=== PATIENT | male | born 1945 | race Caucasian/White ===

== ENCOUNTER 2016-10-28 11:20 | Day surgery (SDC) | payer OTHER ==
[2016-10-14 11:28] VITALS: BMI 28.0
--- NOTE | 2016-10-14 12:14 | PAT Medication Instructions ---
Service Date Oct 14, 2016. Current Home Medication List Aspirin (Aspirin Chewable), 81 MG PO QAM Citalopram Hydrobromide (Citalopram Hydrobromide), 1 TAB PO QAM Ergocalciferol (Vitamin D 27287 Unit), 1 CAP PO WK Fenofibrate (Tricor), 160 MG PO QAM Furosemide (Lasix), 1 TAB PO BID Levothyroxine Sodium (Levothyroxine Sodium), 1 TAB PO QAM Multiple Vitamins W/ Minerals (Multi Vitamin/Minerals Fu), 1 TAB PO QAM Ondasetron Odt (Zofran Odt), 4 MG SL Q6H PRN for Nausea or Vomiting Pantoprazole (Protonix), 40 MG PO QAM Polyethylene Glycol 3350 (Bulk (Polyethylene Glycol 3350), 17 GM PO QAM Simvastatin (Zocor), 1 TAB PO QAM Tamsulosin Hcl (Flomax), 0.4 MG PO QAM [fluticasone nasal], 2 SPRAYS NA qa Medication Instructions For Your Scheduled Surgery - Hold the following medications the morning of surgery: Tamsulosin Hcl (Flomax), 0.4 MG PO QAM Polyethylene Glycol 3350 (Bulk (Polyethylene Glycol 3350), 17 GM PO QAM Multiple Vitamins W/ Minerals (Multi Vitamin/Minerals Fu), 1 TAB PO QAM Furosemide (Lasix), 1 TAB PO BID Fenofibrate (Tricor), 160 MG PO QAM Ergocalciferol (Vitamin D 56604 Unit), 1 CAP PO WK - Take the following medications the morning of surgery with a sip of water: [fluticasone nasal], 2 SPRAYS NA qa Simvastatin (Zocor), 1 TAB PO QAM Ondasetron Odt (Zofran Odt), 4 MG SL Q6H PRN for Nausea or Vomiting (if needed) Pantoprazole (Protonix), 40 MG PO QAM Levothyroxine Sodium (Levothyroxine Sodium), 1 TAB PO QAM Citalopram Hydrobromide (Citalopram Hydrobromide), 1 TAB PO QAM Aspirin (Aspirin Chewable), 81 MG PO QAM (okay to continue per surgeon) - Take the following medications as scheduled the night before surgery: Ondasetron Odt (Zofran Odt), 4 MG SL Q6H PRN for Nausea or Vomiting (if needed) If you have any questions please call us at [phone] or [phone] or [phone]
--- NOTE | 2016-10-14 12:52 | DIAGNOSTIC IMAGING REPORT ---
CHEST 2 VIEWS ROUTINE CLINICAL HISTORY: Preoperative chest COMPARISON STUDY: No previous studies for comparison. FINDINGS: There is a right internal jugular dual-lumen central venous catheter present. The heart is the upper limits of normal in size. There is no failure. There is a small to moderate left pleural effusion with associated left basilar atelectasis.[ IMPRESSION: Left pleural effusion. Electronically signed by: Nav López M.D. 10/14/2016 12:51 PM Dictated Date/Time: 10/14/2016 12:50 PM
[2016-10-14 12:59] LABS: BASO % 0.4 %; BASO ABS # 0.02 K/uL (0-0.2); COMPLETE YES; EOS % 2.9 %; HEMATOCRIT 36.1 % (42-52); IG% 0.2 %; LYMPH % 14.8 %; LYMPH ABS # 0.83 K/uL (1.2-3.4); MEAN CELL VOLUME 100.6 fL (80-100); MEAN CORPUSCULAR HEMOGLOBIN 32.9 pg (25-34); MEAN CORPUSCULAR HGB CONC 32.7 g/dl (32-36); MEAN PLATELET VOLUME 10.5 fL (7.4-10.4); MONO % 8.6 %; NEUT % 73.1 %; PLATELET COUNT 245 K/uL (130-400); RED BLOOD COUNT 3.59 M/uL (4.7-6.1); WHITE BLOOD COUNT 5.61 K/uL (4.8-10.8)
[2016-10-14 13:11] LABS: INR 1.1 (0.9-1.1); PARTIAL THROMBOPLASTIN RATIO 1.2
[2016-10-14 13:41] LABS: BUN/CREATININE RATIO 11.2 (10-20); CALCIUM 8.6 mg/dl (8.5-10.1); CREATININE 4.6 mg/dl (0.60-1.40); POTASSIUM 3.7 mmol/L (3.5-5.1)
[~2016-10-28] VITALS: Ht 175.3 cm; Wt 86.9 kg
--- NOTE | 2016-10-28 06:08 | History and Physical ---
History & Physical Date of Service Oct 28, 2016. History & Physical CC: End stage renal disease HPI: Mr. Lara states that he started dialysis through an IJ PermCath back in 05/2016. He states that he has not yet undergone AV fistula creation. He denies any other complaints at this time including headaches, fevers, chills, dizziness, chest pain, shortness of breath, abdominal pain, nausea, vomiting, diarrhea, constipation, dysuria, hematuria, rest pain, claudication, nonhealing wounds, ulcers, or other complaints. ALLERGIES: NO KNOWN ALLERGIES. HOME MEDICATIONS: Reconciled in the chart and include aspirin, citalopram, ergocalciferol, fenofibrate, fluticasone, furosemide, levothyroxine, MiraLAX, ondansetron, Protonix, Renal Caps, simvastatin, and tamsulosin. PAST MEDICAL HISTORY: Positive for chronic anemia, en-stage renal disease, on hemodialysis, hyperlipidemia, hypothyroidism, gastroesophageal reflux disease. PAST SURGICAL HISTORY: Essentially negative. SOCIAL HISTORY: Negative for tobacco, alcohol, or drug use. FAMILY HISTORY: Positive for hypertension. REVIEW OF SYSTEMS: Negative for fatigue, fevers, sweats, weight loss, exercise intolerance, abnormal moles or rashes, vision changes, photophobia, ear pain, sinus problems or sore throat, cough, shortness of breath, hemoptysis or wheezing, chest pain, palpitations or syncope, abdominal pain, muscle weakness, headaches, dizziness, numbness, or seizures. PHYSICAL EXAMINATION: Vital Signs: Today were as follows, blood pressure 108/ 64 in the right arm, 114/66 in the left, heart rate 74, respiratory rate of 18, oxygen saturation of 98% on room air. Constitutional: In general, the patient is a mildly chronically ill-appearing, elderly male, in no acute distress. He ambulates without assistance and is active, alert, and oriented x4, with normal and recent memory. Head: Normocephalic and atraumatic. Eyes: EOMI. ENMT: Demonstrates no hearing loss, rhinorrhea, or pharyngeal erythema. Neck: Supple. Nontender with a midline trachea, without masses or crepitus. Lungs: Demonstrate no dyspnea. They are clear to auscultation bilaterally, although they are decreased throughout. Cardiovascular: Demonstrates a nondisplaced apical impulse with a regular rate and rhythm without murmurs, lifts, heaves, rubs, or gallops. Peripheral pulses are full and equal in all extremities. No clubbing or cyanosis. Specifically, they are normal in his carotid, brachial, radial, femoral, and DP pulses. His PTs are +1. He has brisk capillary refill. No sign of distal ischemia. Abdomen: Soft, nontender, with normoactive bowel sounds in all 4 quadrants. No guarding or rebound. There is no flank or CVA tenderness. Musculoskeletal: Demonstrates normal tone and strength for age. Bilateral upper extremities demonstrate no cyanosis, edema, clubbing, varicosities, or ulcers. Bilateral lower extremities demonstrate 1+ pitting edema, but no ulcerations. Neurologically, the patient has grossly intact cranial nerves are grossly intact sensation. ASSESSMENT AND PLAN: End-stage renal disease, on hemodialysis. Plan: Patient is admitted for a left antecubital fistula creation. I have discussed the risks options and benefits of the procedure with the patient. The patient understands the risks options and benefits and agrees to the procedure.
[~2016-10-28 11:20] MED LIST: ASPCH81X PO; CEFAZOLIN 2000 MG/60 ML D5W IV SCH; CITA20TA4 PO; ERGO500037 PO; FENO160T PO; FURO80TA63 PO; LEVO112T4 PO; MULT-653 PO; ONDA4TAB10 SL; OXYCODONE/ACETAMINOPHEN 5-325 TAB PO SCH; PANT40TA PO; POLY1POW2 PO; SEVE800T7 PO; SIMV20TA2 PO; SODIUM CHLORIDE 0.9% 1000ML 1,000 ML IV SCH; TAMS0.4C38 PO; fluticasone nasal
[2016-10-28 11:52] VITALS: BP 142/78; PULSE 74; TEMP 36.8; O2SAT 96; Ht 175.3 cm; Wt 86.9 kg
[2016-10-28 12:34] LABS: BUN/CREATININE RATIO 11.1 (10-20); CALCIUM 8.6 mg/dl (8.5-10.1); POTASSIUM 3.8 mmol/L (3.5-5.1)
[2016-10-28] MEDS ORDERED: GELATIN SPONGE 12-7MM ONE (15:12)
[2016-10-28] MEDS ORDERED: HEPARIN SOD (PORCINE) 1000 UNIT/ML 10 ML VIAL ONE (15:12)
[2016-10-28] MEDS ORDERED: THROMBIN FOR SOLN 20000 UNIT KIT ONE (15:12)
[2016-10-28] MEDS ORDERED: BUPIVACAINE/EPINEPHRINE 0.5% MPF 1:200,000 10 ML VIAL ONE (15:12)
[2016-10-28] MEDS ORDERED: LIDOCAINE HCL 1% 20 ML VIAL ONE (15:12)
[2016-10-28] MEDS ORDERED: FENTANYL CITRATE INJ 50 MCG/1 ML 2 ML VIAL ONE ×2 (15:15→16:28)
[2016-10-28] MEDS ORDERED: PROPOFOL IV EMULSION 10 MG/ML 20 ML VIAL IV ONE ×2 (15:15→16:41)
[2016-10-28] MEDS ORDERED: OXYC-57 PO (17:02)
[2016-10-28] MEDS ORDERED: PERCOCET HOME PACK PO ONE (17:15)
[2016-10-28 17:40] VITALS: BP 113/58; PULSE 69; TEMP 36.6; O2SAT 98
[2016-10-28 18:00] VITALS: BP 101/62; PULSE 69; TEMP 36.6; O2SAT 96
--- NOTE | 2016-10-28 18:24 | History & Physical Bridge Note ---
H&P Re-Evaluation Bridge Note: I have examined the patient, reviewed the History & Physical and in the interval since the performance of the History & Physical I have noted the following changes of clinical significance: No changes noted
--- NOTE | 2016-10-28 18:31 | [facility] Post Operative Brief Note ---
Immediate Operative Summary Operative Date Oct 28, 2016. Pre-Operative Diagnosis end-stage renal disease, on hemodialysis Post-Operative Diagnosis SAME Procedure(s) Performed Left Antecubtial Cephalic Vein Arteriovenous Fistula Surgeon Dr. Castillo Senior Designer/Art Director Surgeon(s) Madelin Gipson PA-C Estimated Blood Loss 20 Findings good thrill Specimens none per surgeon Anesthesia MAC Complication(s) None Disposition Recovery Room / PACU
--- NOTE | 2016-10-28 18:31 | Discharge Instructions ---
Discharge Instructions Date of Service Oct 28, 2016. Visit Reason for Visit: End Stage Renal Disease -On Hemodialysis Discharge Discharge Diagnosis / Problem: End stage renal disease Discharge Goals Goal(s): Therapeutic intervention Activity Recommendations Activity Limitations: per Instructions/Follow-up section Lifting Limitations: no more than 25 pounds Exercise/Sports Limitations: as tolerated Anesthesia . Post Anesthesia Instructions: If you have had General Anesthesia or IV Sedation: * Do not drive today. * Resume driving when surgeon permits. * Do not make important decisions or sign legal documents today. * Call surgeon for: 1. Temperature elevations greater than 101 degrees F. 2. Uncontrollable pain. 3. Excessive bleeding. 4. Persistent nausea and vomiting. 5. Medication intolerance (nausea, vomiting or rash). * For nausea and vomiting use only clear liquids such as: tea, soda, bouillon until nausea subsides, then gradually increase diet as tolerated. * If you have any concerns or questions, call your surgeon's office. If physician is unavailable and it is an emergency, call 911 or go to the nearest emergency room. . Instructions / Follow-Up Instructions / Follow-Up Call [phone] to schedule a follow up appointment if one not already scheduled. ACTIVITY RECOMMENDATIONS: See Above SPECIAL CARE INSTRUCTIONS: Call your doctor if: * Temperature above 101 degrees * Pain not relieved by pain medicine ordered * There is increased drainage or redness from any incision * You have any unanswered questions or concerns. Diet Recommendations Recommended Home Diet: resume previous diet Procedures Procedures Performed: Left Antecubtial Cephalic Vein Arteriovenous Fistula Pending Studies Studies pending at discharge: no Medical Emergencies . Who to Call and When: Medical Emergencies: If at any time you feel your situation is an emergency, please call 911 immediately. . Non-Emergent Contact Non-Emergency issues call your: Surgeon . . "Provider Documentation" section prepared by Huber Castillo. .
--- NOTE | 2016-10-28 18:32 | [facility] Operative Report ---
Operative Report Operative Date Oct 28, 2016. Pre-Operative Diagnosis end-stage renal disease, on hemodialysis Post-Operative Diagnosis SAME Procedure(s) Performed Left Antecubtial Cephalic Vein Arteriovenous Fistula Surgeon Dr. Castillo Chemistry Research Assistant Surgeon(s) Kannan Carrillo MD, Madelin Gipson PA-C Estimated Blood Loss 20 Findings Patient had a good cephalic vein that was patent with back bleeding. Patient had a soft brachial artery with a good pulse. At the end of the case the patient had a great thrill in his left upper extremity as well as a palpable radial pulse. The patient denied any weakness numbness or pain in his left hand and the patient had 5 out of 5 strength in his left hand. Specimens none per surgeon Anesthesia MAC Complication(s) None Disposition Recovery Room / PACU Indications Patient is a 71-year-old male with end-stage renal disease and has been using a permacath for dialysis since May of this year. This is his first attempt at a fistula creation for dialysis access. Description of Procedure The patient was taken to the operating room. The patient was placed in the supine position. The patient also received intravenous sedation. The left arm was prepped and draped in the usual sterile fashion. Local anesthetic was used the left antecubital fossa then a small transverse incision in the left forearm a fingerbreadth distal to the elbow crease. The cephalic vein was identified and mobilized distally the vein was ligated. Using a heparin flush the cephalic vein was dilated. Branches were doubly ligated. Attention was then turned to the brachial artery. The fascia was incised, and the brachial artery was also identified and mobilized. The brachial artery was free off significant disease and appeared to be soft with a good pulse. The cephalic vein was mobilized proximally and distally. The brachial artery was mobilized proximally and distally. No heparin was given. The brachial artery was then clamped proximally and distally. The cephalic vein was also clamped proximally . Longitudinal arteriotomy was made in brachial artery, and a longitudinal venotomy was made in the cephalic vein. The vein was then sewn onto the artery and to side fashion using a running 6-0 Prolene suture. Just prior to completion of the anastomosis, it was flushed, and the anastomosis was then completed. A great thrill was noted. Hemostasis was secured. We then closed the wound using interrupted Vicryl 3-0 sutures for the fascia and a running 4-0 Vicryl subcuticular suture for the skin. Dermabond was applied over the skin. The patient tolerated the procedure well. There were no operative complications. The patient was then transferred to the recovery room in satisfactory condition. A great thrill was felt the patient had no pain in his hand or forearm and no complaint of any numbness strength was 5 out of 5.. There was also a palpable radial pulse distally. Dr. Castillo was present and scrubbed for the entirety of this procedure. I, Dr. Castillo was present and scrubbed for the entire procedure. I attest to the content of the Intraoperative Record and any orders documented therein. Any exceptions are noted below.
--- NOTE | 2016-10-28 18:33 | Anesthesiology Progress Note ---
Anesthesia Post Op Note Date & Time Oct 28, 2016 at 17:36 Vital Signs Pain Intensity: 0 Vital Signs Past 12 Hours Date Time Temp Pulse Resp B/P (MAP) Pulse Ox O2 Delivery O2 Flow Rate FiO2 10/28/16 17:35 36.2 66 20 108/59 97 Room Air 10/28/16 17:25 67 24 117/62 96 Room Air 10/28/16 17:15 36.0 68 20 109/60 100 Oxymask 10 10/28/16 11:52 36.8 74 16 142/78 (99) 96 Room Air Notes Mental Status: alert / awake / arousable, participated in evaluation Pt Amnestic to Procedure: Yes Nausea / Vomiting: adequately controlled Pain: adequately controlled Airway Patency, RR, SpO2: stable & adequate BP & HR: stable & adequate Hydration State: stable & adequate Anesthetic Complications: no major complications apparent
== END 2016-10-28 18:18 | disposition home or self-care (01) ==
LOC: C.ACU 11:20
PROVIDERS: ATTEND Surgery Vascular Surgery
DX: N18.6 End stage renal disease (principal); Z99.2 Dependence on renal dialysis; E03.9 Hypothyroidism, unspecified; E78.5 Hyperlipidemia, unspecified